=== PATIENT | male | born 1940 | race Caucasian/White ===

== ENCOUNTER → 2021-01-21 10:47 | Outpatient (BNVA) | payer MEDICARE, SELFPAY | PROVIDERS: PCP Internal Medicine; Visit Provider Urology | DX: N30.40 Irradiation cystitis without hematuria (principal); C61 Malignant neoplasm of prostate | CPT/HCPCS: 99212 ==

== ENCOUNTER → 2021-03-04 09:03 | Outpatient (BNVA) | payer MEDICARE, SELFPAY | PROVIDERS: PCP Internal Medicine; Visit Provider Urology | DX: C61 Malignant neoplasm of prostate (principal); R35.0 Frequency of micturition; N30.40 Irradiation cystitis without hematuria | CPT/HCPCS: Q3014 ==

== ENCOUNTER → 2021-09-09 08:26 | Outpatient (BNVA) | payer MEDICARE, SELFPAY | PROVIDERS: PCP Internal Medicine; Visit Provider Urology | DX: N30.40 Irradiation cystitis without hematuria (principal); C61 Malignant neoplasm of prostate; R35.0 Frequency of micturition | CPT/HCPCS: Q3014 ==

== ENCOUNTER → 2021-11-09 10:12 | Outpatient (BNVA) | payer MEDICARE, SELFPAY | PROVIDERS: PCP Internal Medicine; Visit Provider Urology | DX: R35.0 Frequency of micturition (principal); C61 Malignant neoplasm of prostate | CPT/HCPCS: Q3014 ==

== ENCOUNTER → 2022-01-11 08:37 | Outpatient (BNVA) | payer MEDICARE, SELFPAY | PROVIDERS: PCP Internal Medicine; Visit Provider Urology | DX: C61 Malignant neoplasm of prostate (principal) | CPT/HCPCS: Q3014 ==

== ENCOUNTER → 2022-07-19 11:16 | Outpatient (BNVA) | payer MEDICARE, SELFPAY | PROVIDERS: PCP Internal Medicine; Visit Provider Urology | DX: N30.40 Irradiation cystitis without hematuria (principal); C61 Malignant neoplasm of prostate | CPT/HCPCS: 99212 ==

== ENCOUNTER 2023-03-07 10:16 | Outpatient (AMB) | payer MEDICARE, SELFPAY ==
--- NOTE | 2023-03-07 10:16 | A.OFFVIS_ITS ---
Intake Intake Visit Reasons: PSA follow up (set) Intake Note: Patient is Present for Telephone Follow Up PSA Urology Med: Terazosin Antibiotic Allergy: None Blood Thinner: None Pharamcy: [employer] Allergies No Known Allergies Allergy (Verified 03/07/23 10:17) Medication List - Last Reconciled 03/07/23 by Keaton Miller MD amlodipine 5 mg PO DAILY levothyroxine 150 mcg PO DAILY simvastatin 20 mg PO BEDTIME terazosin 2 mg PO BEDTIME 90 days HPI HPI Comments History of Present Illness Details Kurtis WORKMAN is a very pleasant Vietnamese-Uz[place]. He is a patient of Dr Chaney. He is seen for the following urologic conditions. - prostate cancer - urinary frequency urgency - radiation cystitis Telemedicine Evaluation 15 min Consultation [employer] Sh[employer]a Video attempted PSA staying low Effective voiding - minimal nocturia, no blood in urine Radio playing golf Prostate cancer:? Unfavorable intermediate risk external beam radiation with short-term hormones 07/2018 PSA ??10/01 PSA < 0.1 T 290, 02/01 < 0.1, 10/02 <0.1, 09/03 <0.1, 08/04 <0.1, 02/04 <0.1 Prostate cancer was diagnosed?11/28 Dr Miller.? Diagnosis was reached by?needle biopsy, for elevated PSA, PSA at diagnosis 5.7 from 3.1, , size at TRUS 27gm.? The Vashti grade is?November 2016 ?At biopsy, 06/26, right apex, 4+3 = 7 40%, , left apex, 4+3 = 7 50%..? TNM Classification of Malignant Tumours (TNM)?T1c, N0, M0.? The D'Juan (NCCN) risk category is?Intermediate Risk (PSA 10-20, Gl 7, T2), Group 3 Primary 4.? Initial therapy included?Primary treatment ?-01/29 he has elected for observation. Understands risks of treatment delay ?-04/30 5AR ?05/03/18 GnRH 6m Eligard ?07/31 Additional treatment, External beam radiation with short term hormonal ablation 7920Gy with 44 fractions - [facility] Dr Potts ?08/31 Boost T during radiation ? Recent labs included?a PSA (prostate-specific antigen) ?04/30 2.0, 08/30 1.8,?12/30 3.8, 05/01 4.2, 08/31 Prior to T shot - PSA < 0.1, T 4 1 week later PSA < 0.1, T 1300, 12/31 PSA < 0.1, T 11, 04/02 PSA < 0.1 T 261, 09/03 <0.1 ? Recent imaging included?01/29 , a bone scan NAD, , a CT (computed tomography) scan, NAD ?06/02 Bone Scan negative, CT abd NAD.? Associated conditions ? erectile dysfunction ?Yes ? Therapeutic plan:?Continue with surveillance [facility] Medical History Abnormal glucose Elevated PSA Epistaxis HTN (hypertension) Hypogonadism in male Nocturia Prostate cancer Prostate nodule Right bundle branch block (RBBB) Weak urinary stream Surgical History History of surgery Review of Systems Const All systems reviewed & are unremarkable except as noted in HPI and below Reports no additional complaints Resp Reports no additional complaints GI Reports no additional complaints Reports as per HPI Musc Reports no additional complaints Physical Exam Telemedicine evaluation Appropriate responses Regular breathing rate and rhythm HEENT Head: Yes normal to inspection Ears: hearing grossly normal bilaterally Eyes General: appearance normal, both eyes and all related structures Neck Neck: Yes normal visual inspection Chest Chest palpation & inspection: normal inspection of the chest Resp Effort & Inspection: normal respiratory effort and able to speak in complete sentences Assessment & Plan Assessment & Plan (1) 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 No major barriers to patient understanding were identified. An opportunity to ask questions regarding the treatment plan was provided. All questions were answered. The patient expressed understanding and agreement with the above treatment plan. The patient is aware they should contact our office by phone for worsening of their current condition or the appearance of new urologic symptoms. Compliance is encouraged with any medications and followup testing that is ordered. It is a privilege to participate in the urologic care of your patient. If you have any questions or concerns regarding treatment for the above conditions, or other urologic issues, please do not hesitate to contact me. The office telephone contact is [phone]. This note is constructed using voice recognition software. While every effort has been made to ensure accuracy powerhouse electrician errors may have been included. Yours sincerely, Dr Keaton Miller MD, [facility] - Urology Providers of Expert, Compassionate Care for the Genitourinary System Telehealth Telehealth Location of provider rendering services: practice address Location of patient: address on file Patient Identification confirmed using: Name, : Yes Telehealth method: video Patient verbally consented to treatment: Yes Patient verbally consented to billing insurance company: Yes Patient informed of any privacy concerns related to visit: Yes Coding Level of Care Code Tele Est Pt Level 3 (20281) Diagnoses Radiation cystitis N30.40 Prostate cancer C61
== END 2023-03-07 11:24 | disposition home or self-care (01) ==
LOC: HO.HUSH 10:16
PROVIDERS: PCP Internal Medicine; Visit Provider Urology
DX: N30.40 Irradiation cystitis without hematuria (principal); C61 Malignant neoplasm of prostate
CPT/HCPCS: 99213

== ENCOUNTER → 2023-03-07 10:16 | Outpatient (BNVA) | payer MEDICARE, SELFPAY | PROVIDERS: PCP Internal Medicine; Visit Provider Urology ==

== ENCOUNTER 2023-09-07 10:39 | Outpatient (AMB) | payer MEDICARE, SELFPAY ==
--- NOTE | 2023-09-07 10:47 | A.OFFVIS_ITS ---
Intake Visit Reasons: 6M PSA(set)Confirmed Intake Note: Patient is Present for Follow Up Urology Medication: Terazosin Antibiotic Allergies: None Blood Thinners:None Allergies No Known Allergies Allergy (Verified 03/07/23 10:17) Medication List - Last Reconciled 09/07/23 by Keaton Miller MD amlodipine 5 mg PO DAILY levothyroxine 150 mcg PO DAILY simvastatin 20 mg PO BEDTIME terazosin 2 mg PO BEDTIME 90 days HPI Comments Details: Kurtis WORKMAN is a very pleasant [place]. He is a patient of Dr Chaney. He is seen for the following urologic conditions. - prostate cancer - urinary frequency urgency - radiation cystitis PSA staying low Effective voiding - minimal nocturia, no blood in urine Uses terazosin 2 mg at night Already playing golf 3 times a week Prostate cancer:? Unfavorable intermediate risk external beam radiation with short-term hormones 07/2018 PSA ??10/01 PSA < 0.1 T 290, 02/01 < 0.1, 10/02 <0.1, 09/03 <0.1, 08/04 <0.1, 02/04 <0.1, 09/04 <0.1 Prostate cancer was diagnosed?11/28 Dr Miller.? Diagnosis was reached by?needle biopsy, for elevated PSA, PSA at diagnosis 5.7 from 3.1, , size at TRUS 27gm.? The Vashti grade is?November 2016 ?At biopsy, 06/26, right apex, 4+3 = 7 40%, , left apex, 4+3 = 7 50%..? TNM Classification of Malignant Tumours (TNM)?T1c, N0, M0.? The D'Juan (NCCN) risk category is?Intermediate Risk (PSA 10-20, Gl 7, T2), Group 3 Primary 4.? Initial therapy included?Primary treatment ?-01/29 he has elected for observation. Understands risks of treatment delay ?-04/30 5AR ?05/03/18 GnRH 6m Eligard ?07/31 Additional treatment, External beam radiation with short term hormonal ablation 7920Gy with 44 fractions - [facility] Dr Potts ?08/31 Boost T during radiation ? Recent labs included?a PSA (prostate-specific antigen) ?04/30 2.0, 08/30 1.8,?12/30 3.8, 05/01 4.2, 08/31 Prior to T shot - PSA < 0.1, T 4 1 week later PSA < 0.1, T 1300, 12/31 PSA < 0.1, T 11, 04/02 PSA < 0.1 T 261, 09/03 <0.1 ? Recent imaging included?01/29 , a bone scan NAD, , a CT (computed tomography) scan, NAD ?06/02 Bone Scan negative, CT abd NAD.? Associated conditions ? erectile dysfunction ?Yes ? Therapeutic plan:?Continue with surveillance [facility] Medical History Right bundle branch block (RBBB) HTN (hypertension) Epistaxis Abnormal glucose Hypogonadism in male Prostate cancer Weak urinary stream Nocturia Prostate nodule Elevated PSA Surgical History History of surgery Review of Systems Const Denies chills and Denies fever(s) Card Reports no additional complaints and Denies syncope Resp Denies cough GI Denies abdominal pain and Denies heartburn Reports as per HPI and Denies change in libido Neuro Denies syncope Psych Denies change in libido Endo Denies change in libido Physical Exam Const General: cooperative, healthy appearing, comfortable and no acute distress Orientation/consciousness: patient oriented x3 HEENT Face and sinus: Yes normal facial exam Mouth: moist mucous membranes Neck Neck: Yes normal visual inspection, Yes full ROM and Yes trachea midline Chest Chest palpation & inspection: normal inspection of the chest Resp Effort & Inspection: normal respiratory effort, able to speak in complete sentences and no respiratory distress GI Inspection: Yes normal to inspection Back/Spine/Pelvis Cervical Spine: normal cervical lordosis Thoracic/Lumbar Spine: thoracic and lumbar spine normal to inspection Skin General skin exam: no rashes or lesions noted Neuro General: patient oriented x3, gait normal, tone normal and moves all extremities Extrem General: Yes normal to inspection and Yes capillary refill normal Assessment & Plan Assessment & Plan (1) Prostate cancer: Comment: 07/2018 unfavorable risk intermediate with short-term hormones and external beam radiation Code(s): C61 - Malignant neoplasm of prostate Category: Medical (2) 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 No major barriers to patient understanding were identified. An opportunity to ask questions regarding the treatment plan was provided. All questions were answered. The patient expressed understanding and agreement with the above treatment plan. The patient is aware they should contact our office by phone for worsening of their current condition or the appearance of new urologic symptoms. Compliance is encouraged with any medications and followup testing that is ordered. It is a privilege to participate in the urologic care of your patient. If you have any questions or concerns regarding treatment for the above conditions, or other urologic issues, please do not hesitate to contact me. The office telephone contact is [phone]. This note is constructed using voice recognition software. While every effort has been made to ensure accuracy teletype technician errors may have been included. Yours sincerely, Dr Keaton Miller MD, [facility] - Urology Providers of Expert, Compassionate Care for the Genitourinary System Coding Level of Care Code Est Pt Level 3 (75033) Complex EM visit Add On G2211 Diagnoses Prostate cancer C61 Radiation cystitis N30.40 Urinary frequency R35.0
== END 2023-09-07 11:14 | disposition home or self-care (01) ==
PROVIDERS: PCP Internal Medicine; Visit Provider Urology
DX: C61 Malignant neoplasm of prostate (principal); N30.40 Irradiation cystitis without hematuria; R35.0 Frequency of micturition
CPT/HCPCS: 99213; G2211

== ENCOUNTER → 2023-09-07 10:39 | Outpatient (BNVA) | payer MEDICARE, SELFPAY | PROVIDERS: PCP Internal Medicine; Visit Provider Urology | DX: C61 Malignant neoplasm of prostate (principal); N30.40 Irradiation cystitis without hematuria; R35.0 Frequency of micturition | CPT/HCPCS: 99212 ==

== ENCOUNTER 2024-02-29 09:12 | Outpatient (REF) | payer MEDICARE, SELFPAY ==
[2024-02-29 11:20] LABS: Prostate Specific Antigen < 0.10 ng/mL (<0.05-4.0)
== END 2024-02-29 09:13 | disposition home or self-care (01) ==
LOC: HO.HMGCLDS 09:12
PROVIDERS: Visit Provider Urology
DX: C61 Malignant neoplasm of prostate (principal); Z12.5 Encounter for screening for malignant neoplasm of prostate
CPT/HCPCS: 36415; 84153

== ENCOUNTER 2024-03-07 09:26 | Outpatient (AMB) | payer MEDICARE, SELFPAY ==
--- NOTE | 2024-03-07 09:26 | MHC.OFFVIS ---
Intake Visit Reasons: 6m/PSA(set) Intake Note: Patient is Present for Telephone Follow Up PSA Urology Med: Terazosin Antibiotic Allergy:None Blood Thinner: None Recent PSA: 02/29/2024 PSA: <0.10 Industrial Maintenance Instructor Required: No Accompanied by: Self / Same As Patient Allergies No Known Allergies Allergy (Verified 03/07/24 09:27) Medication List - Last Reconciled 03/07/24 by Keaton Miller MD amlodipine 5 mg PO DAILY levothyroxine 150 mcg PO DAILY simvastatin 20 mg PO BEDTIME terazosin 2 mg PO BEDTIME 90 days HPI Comments Details: Kurtis WORKMAN is a very pleasant Croatian-[place]. He is a patient of Dr Chaney. He is seen for the following urologic conditions. - prostate cancer - urinary frequency urgency - radiation cystitis Telemedicine Evaluation 15 min Consultation [employer] Shaina Video PSA staying low Effective voiding - minimal nocturia, no blood in urine Uses terazosin 2 mg at night Does have urgency every 2-3 hours Not significant enough to warrant bladder stability medications Prostate cancer:? Unfavorable intermediate risk external beam radiation with short-term hormones 07/2018 PSA ??10/01 PSA < 0.1 T 290, 02/01 < 0.1, 10/02 <0.1, 09/03 <0.1, 08/04 <0.1, 02/04 <0.1, 09/05 <0.1, 03/07 <0.1 Prostate cancer was diagnosed?11/28 Dr Miller.? Diagnosis was reached by?needle biopsy, for elevated PSA, PSA at diagnosis 5.7 from 3.1, size at TRUS 27gm.? The [place] grade is?November 2016 ?At biopsy, 06/26, right apex, 4+3 = 7 40%, , left apex, 4+3 = 7 50%..? TNM Classification of Malignant Tumours (TNM)?T1c, N0, M0.? The D'Juan (NCCN) risk category is?Intermediate Risk (PSA 10-20, Gl 7, T2), Group 3 Primary 4.? Initial therapy included?Primary treatment ?-01/29 he has elected for observation. Understands risks of treatment delay ?-04/30 5AR ?05/03/18 GnRH 6m Eligard ?07/31 Additional treatment, External beam radiation with short term hormonal ablation 7920Gy with 44 fractions - [facility] Dr Potts ?08/31 Boost T during radiation ? Recent labs included?a PSA (prostate-specific antigen) ?04/30 2.0, 08/30 1.8,?12/30 3.8, 05/01 4.2, 08/31 Prior to T shot - PSA < 0.1, T 4 1 week later PSA < 0.1, T 1300, 12/31 PSA < 0.1, T 11, 04/02 PSA < 0.1 T 261, 09/03 <0.1 ? Recent imaging included?01/29 , a bone scan NAD, , a CT (computed tomography) scan, NAD ?06/02 Bone Scan negative, CT abd NAD.? Associated conditions ? erectile dysfunction ?Yes ? Therapeutic plan:?Continue with surveillance [facility] Medical History Right bundle branch block (RBBB) HTN (hypertension) Epistaxis Abnormal glucose Hypogonadism in male Prostate cancer Weak urinary stream Nocturia Prostate nodule Elevated PSA Surgical History History of surgery Review of Systems Const All systems reviewed & are unremarkable except as noted in HPI and below Reports no additional complaints Resp Reports no additional complaints GI Reports no additional complaints Reports as per HPI Musc Reports no additional complaints Physical Exam Telemedicine evaluation Appropriate responses Regular breathing rate and rhythm HEENT Head: Yes normal to inspection Ears: hearing grossly normal bilaterally Eyes General: appearance normal, both eyes and all related structures Neck Neck: Yes normal visual inspection Chest Chest palpation & inspection: normal inspection of the chest Resp Effort & Inspection: normal respiratory effort and able to speak in complete sentences Telehealth Telehealth Telehealth Platform: [facility] Location of provider rendering services: practice address Location of patient: address on file Patient Identification confirmed using: Name, : Yes Telehealth method: video Patient verbally consented to treatment: Yes Patient verbally consented to billing insurance company: Yes Patient informed of any privacy concerns related to visit: Yes Minutes spent on Phone/Video with Pt.: 15 Assessment & Plan Assessment & Plan (1) Prostate cancer: Comment: 07/2018 unfavorable risk intermediate with short-term hormones and external beam radiation Code(s): C61 - Malignant neoplasm of prostate Category: Medical (2) 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 No major barriers to patient understanding were identified. An opportunity to ask questions regarding the treatment plan was provided. All questions were answered. The patient expressed understanding and agreement with the above treatment plan. The patient is aware they should contact our office by phone for worsening of their current condition or the appearance of new urologic symptoms. Compliance is encouraged with any medications and followup testing that is ordered. It is a privilege to participate in the urologic care of your patient. If you have any questions or concerns regarding treatment for the above conditions, or other urologic issues, please do not hesitate to contact me. The office telephone contact is [phone]. This note is constructed using voice recognition software. While every effort has been made to ensure accuracy refinery operator helper crude unit errors may have been included. Yours sincerely, Dr Keaton Miller MD, [facility] - Urology Providers of Expert, Compassionate Care for the Genitourinary System Coding Level of Care Code Tele Est Pt Level 3 (60759) Diagnoses Prostate cancer C61 Radiation cystitis N30.40 Urinary frequency R35.0
== END 2024-03-07 09:40 | disposition home or self-care (01) ==
LOC: HO.HUSH 09:26
PROVIDERS: PCP Internal Medicine; Visit Provider Urology
DX: C61 Malignant neoplasm of prostate (principal); N30.40 Irradiation cystitis without hematuria; R35.0 Frequency of micturition
CPT/HCPCS: 99213

== ENCOUNTER → 2024-03-07 09:26 | Outpatient (BNVA) | payer MEDICARE, SELFPAY | PROVIDERS: PCP Internal Medicine; Visit Provider Urology ==

== ENCOUNTER 2024-09-05 09:24 | Outpatient (REF) | payer MEDICARE, SELFPAY ==
--- OUTSIDE RECORDS SUMMARY | 2024-09-05 10:20 | XMS_ITS | Data Portability ---
Author Organization [facility] Larkin adan [address] Address [address] [place] [address] Assessment No assessment recorded. Plan of Treatment Reminders Order Date Submit Date Provider Last Modified By Organization Details Last Modified Time Details Appointments None record ed. Lab None record ed. Referral None record ed. Procedures None record ed. Surgeries None record ed. Imaging None record ed. Medication Orders None record ed. Patient TargetsNo targets recorded. Patient Instructions Encounter Date Encounter Id Patient Instructions Last Modified By Organization Details Last Modified Time 10/25/2022 [id number] hearing loss: care instructions Not available 10/25/2022 15:58:15 earwax blockage: care instructions Not available 10/25/2022 15:59:15 Reason for Referral None Reported. Problems Name Problem SNOMED Code Status Onset Date Resolution Date Notes Provider Name and Address Organization Details Recorded Time Hyperlipide pancho 97744306 Active 2022 JANE menjivar, PA - [facility] 3 15:22:46 Carcinoma of prostate 958824776 Completed 201610/13/2016 JANE menjivar PA - [facility] 3 15:23:07 Hypothyroid ism 36092254 Active 2022 JANE menjivar PA - [facility] 3 15:23:17 Problem Notes None recorded. Procedures Surgical History Date Name Laterality Status Provider Name and Address Organization Details Recorded Time 3 Cerumen Removal by Irrigation completed JANE BARTH PA - [facility] 10/25/2022 15:56:21 Imaging Results None recorded. Procedure Notes None recorded. Medical Equipment None Reported. Allergies No known drug allergies Medications Name Sig Start Date Stop Date Status Note LastModified by Organization Details LastModified Time aspirin active Not Available Not Avail able Not Available levothyroxine active Not Available Not Available Not Available simvastatin active Not Available Not A vailable Not Available Vitals Date Recorded Body height Body mass index (BMI) Body weight Pain severity - 0-10 verbal numeric rating [Score] - Reported Oxygen saturation Oxygen saturation in Arterial blood by Pulse oximetry Respiratory rate Heart rate Body temperature Systolic blood pressure Diastolic blood pressure Provider Name and Address Organization Details Last Updated DateTime 3 177.8 cm 25.8 kg/m2 82344.6 3 g 0 97 % 97 % 17 /min 60 /min 97.9 [degF] 164 mm[Hg] 77 mm[Hg] JANE GARCIA [facility] 15:24:59 Social History Question Answer Notes LastModified by Organizat ion Details LastModified Time Tobacco Smoking Status Former Smoker JANE menjivar PA [facility] 10/25/2022 15:24:01 What Is Your Level Of Alcohol Consumption? Occasional Information not available 10/25/2022 When Did You Quit Smoking? 16+yearssincel astcigarette Information not available 10/25/2022 Do You Use Any Illicit Or Recreational Drugs? No [email or web address] Information not available 10/25/2022 Have You Recently Traveled Abroad? No Information not available 10/25/2022 Do You Or Have You Ever Used Any Other Forms Of Tobacco Or Nicotine? No [email or web address] Information not available 10/25/2022 Sex: Unknown Functional Status None recorded. Mental Status None recorded. Family History Relationship Description Onset Age of this Age Resolved Age Notes LastModified by Organization Details LastModified Time Father No current problems or disability [email or web address] Not available 10/25 15:23:47 Mother No current problems or disability [email or web address] Not available 10/25 15:23:47 Medical History No medical history recorded. Past Encounters Encounter ID Performer Location Encounter Start Date Encounter Closed Date Diagnosis/Indication Diagnosis SNOMED-CT Code Diagnosis ICD10 Code Diagnosis Note [id number] [address] [address] 07/18/2019 08:56:51 07/18/2019 09:54:34 [id number] Miltno Fitzgerald MD [address] [address] 10/25/2022 15:06:21 10/25/2022 16:04:18 Impacted cerumen of bilateral ears [id number] 663529 H61.23 Procedure completed and wax removed both ears with no complicati ons Health Concerns Section Related Observation LastModified by Organization Detai ls LastModified Time None Recorded Concern Status LastModified by Organization Details LastModified Time None Recorded Advance Directives Directive None Recorded Payers Encounter Date Sequence Insurance Name Policy Number Policy Malik Covered Member ID Malik Member ID Guarantor Name 07/18/2019 1 [facility] (MEDICARE REPLACEMENT/A DVANTAGE - HMO) [id number] Candido Green [id number] Candido Green 10/25/2022 1 [employer] (MEDICARE REPLACEMENT PPO) [id number] Candido Green [id number] Candido Green Notes Date Note Type Note Provider Name and Address Organization Details Recorded Time 10/25/2022 text/html Ear problem UCReported bypatient.Locatio n:bilateral Quality:clogged;d ecreased hearing Context:no sick contacts; no recent swimming/water in ear; no recent air travel Modifying Factors:does not hurt to lie on, or pull on ear; does not hurt to chew Milton Fitzgerald MD [address] [place] [address] [place], [address], [place] - [facility] 10/25/2022 15:59:20
--- OUTSIDE RECORDS SUMMARY | 2024-09-05 10:20 | XMS_ITS | Clinical Summary ---
Author Organization [facility] Address [address] [place] [address] Care Team Providers Care Operations Section Manager Name Role Phone Aislinn Lau MD Primary Care Provider [phone] Allergies No known active allergies Medications Medication Sig Dispensed Refills Start Date End Date Status simvastatin (ZOCOR) tablet 20 mg Take 20 mg by mouth every night at bedtime. 0 Active levothyroxine (SYNTHROID, LEVOXY) tablet 175 mcg Take 175 mcg by mouth daily. 0 Active finasteride (PROSCAR) 5 MG tablet Take 5 mg by mouth daily. 0 Active Active Problems No known active problems Family History Medical History Relation Name Comments Cancer Father stomach Cancer Sister breast Relation Name Status Comments Father Sister Social History Tobacco Use Types Packs/Day Years Used Date Smoking Tobacco: Never Smokeless Tobacco: Never Alcohol Use Standard Drinks/Week Comments No 0 (1 standard drink = 0.6 oz pur e alcohol) Sex and Gender Information Value Date Recorded Sex Assigned at Not on file Gender Identity Not on file Sexual Orientation Not on file Last Filed Vital Signs Vital Sign Reading Time Taken Comments Blood Pressure 126/55 01/31/2017 2:20 PM EDT Pulse 60 01/31/2017 2:20 PM EDT Temperature - - Respiratory Rate - - Oxygen Saturation - - Inhaled Oxygen Concentration - - Weight 79.8 kg (176 lb) 01/31/2017 2:20 PM EDT Height 177.8 cm (5' 10 ) 01/31/2017 2:20 PM EDT Body Mass Index 25.25 01/31/2017 2:20 PM EDT Plan of Treatment Health Maintenance Due Date Last Done Comments COVID-19 Vaccine (#1) 1941 Depression Screening 1953 Preventative Health Evaluation 1959 DTap / Tdap / Td (1 - Tdap) 1960 Shingrix-Zoster Vaccine (1 of 2) 1991 Fall Risk Assessment 2006 Pneumococcal Vaccine (1 of 1 - PCV) 2006 RSV Adult > 60+ Yrs or Pregn ant (1 - 1-dose 75+ series) 2016 Influenza Vaccine (#1) 2024 Hepatitis B Vaccines Aged Out No long er eligible based on patient's age to complete this topic RSV Ped < 20 months Aged Out No longe r eligible based on patient's age to complete this topic Care Teams Operations Section Manager Relationship Specialty Start Date End Date Aislinn Lau MD PCP - General Internal Medicine 12/27/16
[2024-09-05 13:56] LABS: Prostate Specific Antigen < 0.10 ng/mL (<0.05-4.0)
== END 2024-09-05 09:25 | disposition home or self-care (01) ==
LOC: HO.HMGCLDS 09:24
PROVIDERS: Visit Provider Urology
DX: C61 Malignant neoplasm of prostate (principal); Z12.5 Encounter for screening for malignant neoplasm of prostate
CPT/HCPCS: 36415; 84153

== ENCOUNTER 2024-09-12 08:36 | Outpatient (AMB) | payer MEDICARE, SELFPAY ==
--- NOTE | 2024-09-12 08:39 | A.OFFVIS_ITS ---
Intake Visit Reasons: 6M PSA Intake Note: Patient is present for a 6 month follow up/PSA PSA:0.10 Urology Med: Terazosin Antibiotic Allergy:None Blood Thinner: None Grass Cutter Required: No Accompanied by: Self / Same As Patient Allergies No Known Allergies Allergy (Verified 09/12/24 08:48) HPI Comments Details: Kurtis WORKMAN is a very pleasant Japanese-Jay. He is a patient of Dr Chaney. He is seen for the following urologic conditions. - prostate cancer - urinary frequency urgency - radiation cystitis PSA staying low Effective voiding - minimal nocturia, no blood in urine Uses terazosin 2 mg at night Does have urgency every 2-3 hours Not significant enough to warrant bladder stability medications Now at 6 years follow-up. May move to yearly follow-up. Prostate cancer:? Unfavorable intermediate risk external beam radiation with short-term hormones 07/2018 PSA ??10/01 PSA < 0.1 T 290, 02/01 < 0.1, 10/02 <0.1, 09/03 <0.1, 08/04 <0.1, 02/04 <0.1, 09/05 <0.1, 03/07 <0.1, <0.1 Prostate cancer was diagnosed?11/28 Dr Miller.? Diagnosis was reached by?needle biopsy, for elevated PSA, PSA at diagnosis 5.7 from 3.1, size at TRUS 27gm.? The Vashti grade is?November 2016 ?At biopsy, 06/26, right apex, 4+3 = 7 40%, , left apex, 4+3 = 7 50%..? TNM Classification of Malignant Tumours (TNM)?T1c, N0, M0.? The D'Juan (NCCN) risk category is?Intermediate Risk (PSA 10-20, Gl 7, T2), Group 3 Primary 4.? Initial therapy included?Primary treatment ?-01/29 he has elected for observation. Understands risks of treatment delay ?-04/30 5AR ?05/01 GnRH 6m Eligard ?07/31 Additional treatment, External beam radiation with short term hormonal ablation 7920Gy with 44 fractions - [facility] Dr Potts ?08/31 Boost T during radiation ? Recent labs included?a PSA (prostate-specific antigen) ?04/30 2.0, 08/30 1.8,?12/30 3.8, 05/01 4.2, 08/31 Prior to T shot - PSA < 0.1, T 4 1 week later PSA < 0.1, T 1300, 12/31 PSA < 0.1, T 11, 04/02 PSA < 0.1 T 261, 09/03 <0.1 ? Recent imaging included?01/29 , a bone scan NAD, , a CT (computed tomography) scan, NAD ?06/02 Bone Scan negative, CT abd NAD.? Associated conditions ? erectile dysfunction ?Yes ? Therapeutic plan:?Continue with surveillance [facility] Medical History Right bundle branch block (RBBB) HTN (hypertension) Epistaxis Abnormal glucose Hypogonadism in male Prostate cancer Weak urinary stream Nocturia Prostate nodule Elevated PSA Surgical History History of surgery Review of Systems Const Denies chills and Denies fever(s) Card Reports no additional complaints and Denies syncope Resp Denies cough GI Denies abdominal pain and Denies heartburn Reports as per HPI and Denies change in libido Neuro Denies syncope Psych Denies change in libido Endo Denies change in libido Physical Exam Const General: cooperative, healthy appearing, comfortable and no acute distress Orientation/consciousness: patient oriented x3 HEENT Face and sinus: Yes normal facial exam Mouth: moist mucous membranes Neck Neck: Yes normal visual inspection, Yes full ROM and Yes trachea midline Chest Chest palpation & inspection: normal inspection of the chest Resp Effort & Inspection: normal respiratory effort, able to speak in complete sentences and no respiratory distress GI Inspection: Yes normal to inspection Back/Spine/Pelvis Cervical Spine: normal cervical lordosis Thoracic/Lumbar Spine: thoracic and lumbar spine normal to inspection Skin General skin exam: no rashes or lesions noted Neuro General: patient oriented x3, gait normal, tone normal and moves all extremities Extrem General: Yes normal to inspection and Yes capillary refill normal Assessment & Plan Assessment & Plan (1) Prostate cancer: Comment: 07/2018 unfavorable risk intermediate with short-term hormones and external beam radiation Code(s): C61 - Malignant neoplasm of prostate Category: Medical (2) 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 While every effort has been made to ensure accuracy paste mixer errors may have been included. Imaging studies, laboratory and physical exam results were discussed and reviewed in detail. No major barriers to patient understanding were identified. An opportunity to ask questions regarding the treatment plan was provided. All questions were answered. The patient expressed understanding and agreement with the above treatment plan. The patient is aware they should contact our office by phone for worsening of their current condition or the appearance of new urologic symptoms. Compliance is encouraged with any medications and followup testing that is ordered. It is a privilege to participate in the urologic care of your patient. If you have any questions or concerns regarding treatment for the above conditions, or other urologic issues, please do not hesitate to contact me. The office telephone contact is [phone]. Sincerely, Dr Keaton Miller MD, [facility] - Urology Compassionate Specialist Care for the Genitourinary System Coding Level of Care Code Est Pt Level 3 (41948) Complex EM visit Add On G2211 Diagnoses Prostate cancer C61 Radiation cystitis N30.40
--- OUTSIDE RECORDS SUMMARY | 2024-09-12 08:52 | XMS_ITS | Clinical Summary ---
Author Organization [facility] [address] [facility] Address [address] [place] [phone] Phone Care Team Providers Care [facility] Name Role Phone Yumiko Pablo MD Primary Care Provider [phone] Allergies No known active allergies Medications aspirin 81 mg EC tablet Take 1 tablet (81 mg total) by mouth 1 (one) time each day. 08/13/19 09 Active folic acid/multivit- min/lutein (CENTRUM SILVER ORAL) Take by mouth daily. 12/10/19 15 Active docosahexaenoi c acid/epa (FISH OIL ORAL) Take by mouth daily. 08/13/19 09 Active terazosin (HYTRIN) 2 mg capsule Take 1 capsule (2 mg total) by mouth 1 (one) time each day. 02/01/20 17 Active levothyroxine (SYNTHROID, LEVOTHROID) 100 mcg tablet Take 1 tablet (100 mcg total) by mouth 1 (one) time each day before breakfast. 90 tablet 1 08/21/19 25 Active simvastatin (ZOCOR) 20 mg tablet Take 1 tablet (20 mg total) by mouth 1 (one) time each day. 90 tablet 1 08/21/19 25 Active amLODIPine (NORVASC) 10 mg tablet Take 1 tablet (10 mg total) by mouth 1 (one) time each day. 90 each 08/21/19 25 025 Active simvastatin (ZOCOR) 20 mg tablet Take 1 tablet by mouth once daily 90 tablet 06/19/19 25 025 Discontinued(Re order) levothyroxine (SYNTHROID, LEVOTHROID) 100 mcg tablet Take 1 tablet (100 mcg total) by mouth 1 (one) time each day before breakfast. 90 tablet 06/20/19 25 025 Discontinued(Re order) amLODIPine (NORVASC) 5 mg tablet Take 1 tablet (5 mg total) by mouth 1 (one) time each day. 90 each 07/04/19 25 025 Discontinued Active Problems Problem Noted Date Diagnosed Date Benign prostatic hyperplasia without lower urinary tract symptoms 03/28/2024 Heart murmur 03/28/2024 Valvular heart disease 08/31/2021 Hypothyroidism 12/07/2017 Anemia 09/26/2017 Hyperlipidemia 08/29/2017 Hypertension 04/27/2017 Right bundle branch block 05/20/2014 Encounters Date Type Department Care Team Description 08/20/2024 7:45 AM EDT Office Visit Adult [address] [phone] Yumiko Pablo MD Primary hypertension (Primary Dx); Heart murmur; Hypothyroidism, unspecified type; Hyperlipidemia, unspecified hyperlipidemia type; Leukopenia, unspecified type; Abnormal CBC 07/04/2024 8:45 AM EST Office Visit [address] [phone] Yumiko Pablo MD Hypothyroidism, unspecified type (Primary Dx); Primary hypertension; Hyperbilirubinemia; Heart murmur 06/21/2024 Telephone Adult Medicine [address] [phone] Yanni Proctor MA from Last 3 Months Medical History Medical History Date Comments Anemia 09/26/2017 DX:Anemia History of prostate cancer 04/27/2017 DX:Hi story of prostate cancer; COMMENT: Unclear if active problem; no chemo meds Hyperlipidemia 08/29/2017 DX:Hyperlipidemi a Hypertension 04/27/2017 DX:Hypertension Hypothyroidism 12/07/2017 DX:Hypothyroidis m Right bundle branch block 05/20/2014 DX:Rig ht bundle branch block Family History Medical History Relation Name Comments Cancer of Small Bowel Brother 1 Lung cancer Brother 2 Stomach cancer Father Other: stomach ulcer Mother Other cancer Sister 1 Other: bone cancer Sister 2 Relation Name Status Comments Brother 1 Brother 2 Father Mother Sister 1 Sister 2 Social History Tobacco Use Types Packs/Day Years Used Date Smoking Tobacco: Former Cigarettes 1 11 1 05/15/1955 - 03/15/1967 Smokeless Tobacco: Never Alcohol Use Standard Drinks/Week Comments Yes 1 (1 standard drink = 0.6 oz pur e alcohol) Sex and Gender Information Value Date Recorded Sex Assigned at Not on file Legal Sex Male 1:44 PM EST Gender Identity Not on file Sexual Orientation Not on file Obstetrics History Last Filed Vital Signs Vital Sign Reading Time Taken Comments Blood Pressure 180/76 08/20/2024 8:02 AM EDT AVG BP Pulse 56 08/20/2024 8:02 AM EDT Temperature 36.4 ??C (97.5 ??F) 08/20/2024 7:53 AM ED T Respiratory Rate 16 08/20/2024 7:53 AM EDT Oxygen Saturation 98% 08/20/2024 7:53 AM EDT Inhaled Oxygen Concentration - - Weight 79 kg (174 lb 3.2 oz) 08/20/2024 7:53 AM EDT Height 177.8 cm (5' 10 ) 08/20/2024 7:53 AM EDT Body Mass Index 25 08/20/2024 7:53 AM EDT Plan of Treatment Upcoming Encounters Date Type Department Care Team (Late st Contact Info) Description 10/01/2024 11:00 AM EDT Office Visit [facility] Hematology Oncology [address] [place] [phone] Adina Belcher DO [address] [place] [address] 11/19/2024 10:00 AM EDT Office Visit Adult Medicine [facility] [address] [place] [phone] Yumiko Pablo MD [address] [place] [address] Health Maintenance Due Date Last Done Comments DTaP,Tdap,and Td Vaccines (1 - Tdap) 1959 Pneumococcal Vaccine: 50+ Years (1 of 2 - PCV) 1959 Zoster Vaccines (1 of 2) 1959 RSV Immunization Adult Patients (1 - 1-dose 75+ series) 2016 Depression Screening 04/23/2022 Falls Risk Assessment 04/23/2022 Medicare Annual Wellness Visit 04/23/2022 Social Influencers of Health Screening 04/23/2022 COVID-19 Vaccine (4 - 2023-2 5 season) 2024 03/02/2021, 07/24/2020, 07/03/2020 Influenza Vaccine (Season Ended) 2025 Hypertension/CHF/CAD Annual BMP Blood Test 03/28/2025 03/28/2024, 03/02/2023 Cholesterol Screening (Lipid Panel) 03/28/2029 03/28/2024, 03/02/2023 HIB Vaccines Aged Out No longer eligi ble based on patient's age to complete this topic HPV Vaccines Aged Out No longer eligi ble based on patient's age to complete this topic Hepatitis A Vaccines Aged Out No long er eligible based on patient's age to complete this topic Hepatitis B Vaccines Aged Out No long er eligible based on patient's age to complete this topic IPV Vaccines Aged Out No longer eligi ble based on patient's age to complete this topic MMR Vaccines Aged Out No longer eligi ble based on patient's age to complete this topic Meningococcal ACWY Vaccine Aged Out N o longer eligible based on patient's age to complete this topic Meningococcal B Vaccine Aged Out No l onger eligible based on patient's age to complete this topic RSV Immunization Patients Under 20 months Aged Out No longer eligible b ased on patient's age to complete this topic Varicella Vaccines Aged Out No longer eligible based on patient's age to complete this topic Procedures Procedure Name Priority Date/Time Associated Diagnosis Comments CBC WITH AUTO DIFFERENTIAL Routine 08/15/2024 9:03 AM EDT Hyperbilirubinemia THYROID STIMULATING HORMONE WITH REFLEX TO FREE T4 AND FREE T3 Routine 08/15/2024 9:03 AM EDT Hypothyroidism, unspecified type HEPATIC FUNCTION PANEL Routine 04/03/202 5 9:03 AM EDT Hyperbilirubinemia CBC AND DIFFERENTIAL Routine 08/15/2024 9:03 AM EDT Hyperbilirubinemia LACTATE DEHYDROGENASE Routine 08/15/2024 9:03 AM EDT Hyperbilirubinemia HAPTOGLOBIN Routine 08/15/2024 9:03 AM EDT Hyperbilirubinemia COMPREHENSIVE METABOLIC PANEL Routine 03/28/2024 9:07 AM EST Annual physical exam LIPID PANEL WITH REFLEX TO DIRECT LDL Routine 03/28/2024 9:07 AM EST Annual physical exam from Last 3 Months or Most Recently Relevant to Health Maintenance Results * Thyroid stimulating hormone with reflex to free t4 and free t3 (08/15/2024 9:03 AM EDT) Pathologist [facility] TSH 1.69 0.40 - 4.00 mcIU/mL LAB CHEMISTRY METHOD 08/15/2024 3:01 PM EDT [facility] Blood Venous blood specimen / Unknown Venipuncture / Unknown 08/15/2024 9:03 AM EDT 08/15/2024 9:03 AM EDT us Yumiko Pablo MD LAB BLOOD ORDERABLES Final Result [facility] [address] [place] [address], * (ABNORMAL) CBC auto differential (08/15/2024 9:03 AM EDT) WBC 3.9(L) 4.8 - 10.8 [facility] LAB HEMETOLOGY METHOD 08/15/2024 11:02 AM EDT [facility] RBC 4.40(L) 4.50 - 5.50 M/mcL LAB HEMETOLOGY METHOD 08/15/2024 11:02 AM [facility] Hemoglobin 13.5 13.5 - 17.5 g/dL LAB HEMETOLOGY METHOD 08/15/2024 11:02 AM [facility] Hematocrit 39.4(L) 42.0 - 54.0 % LAB HEMETOLOGY METHOD 08/15/2024 11:02 AM [facility] MCV 88.7 79.0 - 98.0 FL LAB HEMETOLOGY METHOD 08/15/2024 11:02 AM [facility] MCH 30.4 27.0 - 32.0 pcg LAB HEMETOLOGY METHOD 08/15/2024 11:02 AM [facility] MCHC 34.3 32.0 - 37.0 g/dL LAB HEMETOLOGY METHOD 08/15/2024 11:02 AM [facility] RDW 13.4 11.0 - 15.0 % LAB HEMETOLOGY METHOD 08/15/2024 11:02 AM [facility] Platelets 212 130 - 400 K/mcL LAB HEMETOLOGY METHOD 08/15/2024 11:02 AM [facility] MPV 10.7 7.0 - 11.0 FL LAB HEMETOLOGY METHOD 08/15/2024 11:02 AM [facility] NRBC 0.0 <1.0 % LAB HEMETOLOGY METHOD 08/15/2024 11:02 AM [facility] NRBC Absolute 0.00 <0.10 K/mcL LAB HEMETOLOGY METHOD 08/15/2024 11:02 AM [facility] Neutrophils Relative 52.9 % LAB HEMETOLOGY METHOD 08/15/2024 11:02 AM [facility] Lymphocytes Relative 31.4 % LAB HEMETOLOGY METHOD 08/15/2024 11:02 AM [facility] Monocytes Relative 12.1 % LAB HEMETOLOGY METHOD 08/15/2024 11:02 AM [facility] Eosinophils Relative 2.8 % LAB HEMETOLOGY METHOD 08/15/2024 11:02 AM [facility] Basophils Relative 0.5 % LAB HEMETOLOGY METHOD 08/15/2024 11:02 AM [facility] Immature Granulocytes Relative 0.3 % LAB HEMETOLOGY METHOD 08/15/2024 11:02 AM [facility] Neutrophils Absolute 2.06 1.50 - 7.00 K/mcL LAB HEMETOLOGY METHOD 08/15/2024 11:02 AM [facility] Lymphocytes Absolute 1.22 1.00 - 5.00 K/mcL LAB HEMETOLOGY METHOD 08/15/2024 11:02 AM [facility] Monocytes Absolute 0.47 0.20 - 1.00 K/mcL LAB HEMETOLOGY METHOD 08/15/2024 11:02 AM [facility] Eosinophils Absolute 0.11 0.00 - 0.50 K/mcL LAB HEMETOLOGY METHOD 08/15/2024 11:02 AM [facility] Basophils Absolute 0.02 0.00 - 0.20 K/mcL LAB HEMETOLOGY METHOD 08/15/2024 11:02 AM [facility] Immature Granulocytes Absolute 0.01 0.00 - 0.03 K/mcL LAB HEMETOLOGY METHOD 08/15/2024 11:02 AM [facility] Blood Venous blood specimen / Unknown Venipuncture / Unknown 08/15/2024 9:03 AM EDT 08/15/2024 9:03 AM EDT us Yumiko Pablo MD LAB BLOOD ORDERABLES Final Result [facility] [address] [place] [address], [place] [phone] * Lactate dehydrogenase (08/15/2024 9:03 AM EDT) LDH 168 120 - 246 unit/L LAB CHEMISTRY METHOD 08/15/2024 2:17 PM EDT [facility] Blood Venous blood specimen / Unknown Venipuncture / Unknown 08/15/2024 9:03 AM EDT 08/15/2024 9:03 AM EDT Yumiko Pablo MD LAB BLOOD ORDERABLES Final Result [facility] [address] [place] [address], [place] [phone] * Haptoglobin (08/15/2024 9:03 AM EDT) Haptoglobin 155 16 - 200 mg/dL LAB CHEMISTRY METHOD 08/15/2024 2:17 PM EDT [facility] Blood Venous blood specimen / Unknown Venipuncture / Unknown 08/15/2024 9:03 AM EDT 08/15/2024 9:03 AM EDT Yumiko Pablo MD LAB BLOOD ORDERABLES Final Result [facility] [address] [place] [address], [place] [phone] * Hepatic function panel (08/15/2024 9:03 AM EDT) Total Protein 6.9 6.0 - 8.0 g/dL LAB CHEMISTRY METHOD 08/15/2024 2:10 PM EDT [facility] Albumin 3.5 3.2 - 5.0 g/dL LAB CHEMISTRY METHOD 08/15/2024 2:10 PM EDT [facility] Total Bilirubin 1.2 0.0 - 1.4 mg/dL LAB CHEMISTRY METHOD 08/15/2024 2:10 PM EDT [facility] Bilirubin, Direct 0.3 0.0 - 0.3 mg/dL LAB CHEMISTRY METHOD 08/15/2024 2:10 PM EDT [facility] Bilirubin, Indirect 0.9 0.0 - 1.1 mg/dL LAB CHEMISTRY METHOD 08/15/2024 2:10 PM EDT [facility] ALT (SGPT) 29 10 - 60 unit/L LAB CHEMISTRY METHOD 08/15/2024 2:10 PM EDT [facility] AST (SGOT) 26 10 - 42 unit/L LAB CHEMISTRY METHOD 08/15/2024 2:[facility] Alkaline Phosphatase 62 42 - 121 unit/L LAB CHEMISTRY METHOD 08/15/2024 2:10 PM [facility] Blood Venous blood specimen / Unknown Venipuncture / Unknown 08/15/2024 9:03 AM EDT 08/15/2024 9:03 AM EDT us Yumiko Pablo MD LAB BLOOD ORDERABLES Final Result [facility] [address] [place] [address], * Lipid panel with reflex to direct LDL (03/28/2024 9:07 AM EST) Cholesterol 143 0 - 200 mg/dL LAB CHEMISTRY METHOD 03/28/2024 1:25 PM EST [facility] Triglycerides 136 0 - 150 mg/dL LAB CHEMISTRY METHOD 03/28/2024 1:25 PM EST [facility] HDL 57 >=40 mg/dL LAB CHEMISTRY METHOD 03/28/2024 1:25 PM EST [facility] LDL Calculated 59 0 - 100 mg/dL LAB CHEMISTRY METHOD 03/28/2024 1:25 PM EST [facility] VLDL Cholesterol Earl 27.2 mg/dL LAB CHEMISTRY METHOD 03/28/2024 1:25 PM EST [facility] Non HDL Chol. (LDL+VLDL) 86 <145 mg/dL LAB CHEMISTRY METHOD 03/28/2024 1:[address] [facility] Chol/HDL Ratio 2.5 0.0 - 4.4 LAB CHEMISTRY METHOD 03/28/2024 1:[address] [facility] Blood Venous blood specimen / Unknown Venipuncture / Unknown 03/28/2024 9:07 AM EST 03/28/2024 9:07 AM EST us Yumiko Pablo MD LAB BLOOD ORDERABLES Final Result [facility] [address] [place] [address], * (ABNORMAL) Comprehensive metabolic panel (03/28/2024 9:07 AM EST) Sodium 140 133 - 145 mmol/L LAB CHEMISTRY METHOD 03/28/2024 1:[address] [facility] Potassium 4.6 3.5 - 5.5 mmol/L LAB CHEMISTRY METHOD 03/28/2024 1:[address] [facility] Chloride 103 96 - 110 mmol/L LAB CHEMISTRY METHOD 03/28/2024 1:[address] [facility] CO2 32 21 - 32 mmol/L LAB CHEMISTRY METHOD 03/28/2024 1:[address] [facility] Anion Gap 5 3 - 11 LAB CHEMISTRY METHOD 03/28/2024 1:[address] [facility] Glucose 98 70 - 100 mg/dL LAB CHEMISTRY METHOD 03/28/2024 1:[address] [facility] BUN 8 5 - 25 mg/dL LAB CHEMISTRY METHOD 03/28/2024 1:[address] [facility] Creatinine 0.94 0.70 - 1.30 mg/dL LAB CHEMISTRY METHOD 03/28/2024 1:[address] [facility] eGFR 81 >=60 mL/min/1. 73m2 LAB CHEMISTRY METHOD 03/28/2024 1:[address] [facility] Comment:Calculation based on the??Chronic Kidney Disease Epidemiology Collaboration (CKD-EPI) equation refit??without adjustment for race. BUN/Creatinine Ratio 8.5 LAB CHEMISTRY METHOD 03/28/2024 1:[address] [facility] Calcium 9.6 8.5 - 10.5 mg/dL LAB CHEMISTRY METHOD 03/28/2024 1:[address] [facility] AST (SGOT) 24 10 - 42 unit/L LAB CHEMISTRY METHOD 03/28/2024 1:[address] [facility] ALT (SGPT) 30 10 - 60 unit/L LAB CHEMISTRY METHOD 03/28/2024 1:[address] [facility] Alkaline Phosphatase 67 42 - 121 unit/L LAB CHEMISTRY METHOD 03/28/2024 1:[address] [facility] Total Protein 7.2 6.0 - 8.0 g/dL LAB CHEMISTRY METHOD 03/28/2024 1:[address] [facility] Albumin 3.9 3.2 - 5.0 g/dL LAB CHEMISTRY METHOD 03/28/2024 1:[address] [facility] Total Bilirubin 1.9(H) 0.0 - 1.4 mg/dL LAB CHEMISTRY METHOD 03/28/2024 1:[address] [facility] Blood Venous blood specimen / Unknown Venipuncture / Unknown 03/28/2024 9:07 AM EST 03/28/2024 9:07 AM EST us Yumiko Pablo MD LAB BLOOD ORDERABLES Final Result [facility] [address] [place] [address], from Last 3 Months or Most Recently Relevant to Health Maintenance Insurance [place] [id number] [employer] MED[employer]ARE [employer]VANTAGE Care Teams [facility] Relationship Specialty Start Date End Date Yumiko Pablo MD [facility] [place] [phone] PCP - General 08/15/23
--- OUTSIDE RECORDS SUMMARY | 2024-09-12 08:52 | XMS_ITS | Clinical Summary ---
Author Organization [facility] Address [address] [place] [address] Care Team Providers Care Single Wire Saw Operator Name Role Phone Aislinn Lau MD Primary Care Provider [phone] Allergies No known active allergies Medications Medication [...] age to complete this topic Care Teams Single Wire Saw Operator Relationship Specialty Start Date End Date Aislinn Lau MD PCP - General Internal Medicine 12/27/16
== END 2024-09-12 09:19 | disposition home or self-care (01) ==
LOC: HO.HUSH 08:36
PROVIDERS: PCP Internal Medicine; Visit Provider Urology
DX: C61 Malignant neoplasm of prostate (principal); N30.40 Irradiation cystitis without hematuria
CPT/HCPCS: 99213; G2211

== ENCOUNTER → 2024-09-12 08:36 | Outpatient (BNVA) | payer MEDICARE, SELFPAY | PROVIDERS: PCP Internal Medicine; Visit Provider Urology | DX: C61 Malignant neoplasm of prostate (principal); R35.0 Frequency of micturition; R39.15 Urgency of urination; N30.40 Irradiation cystitis without hematuria | CPT/HCPCS: 99212 ==